=== PATIENT | male | born 1955 | race Caucasian/White ===

== ENCOUNTER → 2024-10-28 10:10 | Outpatient (REF) | payer OTHER, SELFPAY | LOC: RAD 10:10 | PROVIDERS: ATTENDING PHYSICIAN Internal Medicine Rheumatology; FAMILY PHYSICIAN Family Medicine; OTHER PHYSICIAN Physical Medicine & Rehabilitation Sports Medicine | DX: M10.9 Gout, unspecified (principal); M12.9 Arthropathy, unspecified; M19.079 Primary osteoarthritis, unspecified ankle and foot; M54.50 Low back pain, unspecified | CPT/HCPCS: 72110; 73630 ==